=== PATIENT | female | born 2005 | race Caucasian/White ===

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

== ENCOUNTER → 2024-01-02 | Outpatient (CLI) | payer BC ==
--- NOTE | 2024-01-02 15:52 | CT ---
EXAMINATION TYPE: CT brain wo con CT DLP: 1165 mGycm, Automated exposure control for dose reduction was used. DATE OF EXAM: 01/02/2024 3:34 PM COMPARISON: None. CLINICAL INDICATION:Female, 19 years old with history of R55 Syncope, syncope TECHNIQUE: Brain: Multiple axial CT images of the brain were obtained without IV contrast. . Coronal and sagitta l reformats reviewed. FINDINGS: Brain: Extra-axial spaces: No abnormal extra-axial fluid collections. Incidental fat-containing pericallosal lipoma along the falx. Ventricular system: Within normal limits Cerebral parenchyma: No acute intraparenchymal hemorrhage or mass effect. The spencer-white junction is well differentiated. Cerebellum: Unremarkable. Mass effect: No evidence of midline shift. Intracranial vasculature: unremarkable Soft tissues: Few subcentimeter occipital soft tissue lymph nodes. Calvarium/osseous structures: No depressed skull fracture. Paranasal sinuses and mastoid air cells: Clear Visualized orbits: Orbital contents are intact. IMPRESSION: No acute intracranial process. [facility], , 01/02/2024 3:50 PM
--- NOTE | 2024-01-02 16:56 | CA ---
Transthoracic Echo Report Name: Farrah Moses Age: 19 Gender: F : 2005 Exam Date: 01/02/2024 15:38 Exam Location: [facility] Ht (in): 67 Wt (lb): 270 Ordering Physician: Oren Barrera MD Attending/Referring Phys: Ingrid Graham PAC Fusion Analyst Venessa Lassiter RDCS Procedure CPT: Indications: R55 Syncope Cardiac Hx: Technical Quality: Good Contrast 1: Total Dose (mL): Contrast 2: Total Dose (mL): MEASUREMENTS (Male / Female) Normal Values 2D ECHO LV Diastolic Diameter PLAX 4.6 cm 4.2 - 5.9 / 3.9 - 5.3 cm LV Systolic Diameter PLAX 2.7 cm IVS Diastolic Thickness 1.1 cm 0.6 - 1.0 / 0.6 - 0.9 cm LVPW Diastolic Thickness 1.1 cm 0.6 - 1.0 / 0.6 - 0.9 cm LV Relative Wall Thickness 0.5 RV Internal Dim ED PLAX 3.1 cm LA Systolic Diameter LX 3.5 cm 3.0 - 4.0 / 2.7 - 3.8 cm M-MODE Aortic Root Diameter MM 2.5 cm AV Cusp Separation MM 2.0 cm DOPPLER AV Peak Velocity 142.2 cm/s AV Peak Gradient 8.1 mmHg Mitral E Point Velocity 121.2 cm/s Mitral A Point Velocity 60.7 cm/s Mitral E to A Ratio 2.0 MV Deceleration Time 249.3 ms TR Peak Velocity 219.0 cm/s TR Peak Gradient 19.2 mmHg Right Ventricular Systolic Press 29.2 mmHg FINDINGS Left Ventricle Left ventricular ejection fraction is estimated at 55-60 %. Left ventricular cavity size normal. Mildly increased septal wall thickness. Mildly increased posterior wall thickness. Normal left ventricular wall motion. Right Ventricle Normal right ventricular size and function. Right ventricular systolic pressure within normal limits. Right Atrium Normal right atrial size. No right atrial thrombus or mass seen. Left Atrium Normal left atrial size. No left atrial thrombus or mass present. Mitral Valve Structurally normal mitral valve. No mitral stenosis, regurgitation or prolapse. Aortic Valve Trileaflet aortic valve. No aortic valve stenosis or regurgitation. Tricuspid Valve Structurally normal tricuspid valve. Trace to mild tricuspid regurgitation. Pulmonic Valve Structurally normal pulmonic valve. No pulmonic regurgitation. Pericardium No pericardial or pleural effusion. Aorta Normal size aortic root and proximal ascending aorta. CONCLUSIONS Normal LV function Previewed by: Dr. Isaac Jarvis MD (Electronically Signed) Final Date: 02 January 2024 16:55
== END | disposition home or self-care (01) ==
LOC: RADCTMAIN 15:16
PROVIDERS: ATTEND Family Medicine
DX: R55 Syncope and collapse (principal)
CPT/HCPCS: 70450; 93306

== ENCOUNTER → 2024-02-09 | Outpatient (CLI) | payer BC ==
--- NOTE | 2024-02-12 08:36 | EEG ---
ELECTROENCEPHALOGRAM REPORT EEG TYPE: This is a prolonged routine EEG with video using the 10/20 electrode placement system. The start of recording is 9:25 am and the end of recording is 10:26 a.m. on 02/09/2024. CLINICAL HISTORY: This is a 19-year-old woman with reported syncopal episode. The video EEG is obtained to evaluate for seizure epileptiform activity. RELEVANT MEDICATION: 1. Methylphenidate. 2. Buspirone. 3. Escitalopram that is reported on the dental laboratory technician apprentice report. DESCRIPTION: Wakefulness and brief drowsiness are obtained. During awake state, the posterior- dominant rhythm consists of [id number] voltage of 11.5-12 Hz activity that is well modulated, well sustained. There is no physiological stage 2 sleep architecture. There is no focal slowing. INTERICTAL AND ICTAL: There is a spike/some sharply controlled activity over the left frontotemporal region. No seizure is noted during the study. ACTIVATION PROCEDURE: Photic stimulation did not evoke a posterior driving response. There is no abnormality during the photic stimulation. Hyperventilation is not performed. CLINICAL INTERPRETATION: This is an abnormal 1 hour EEG. The background is normal. There is spike/sharply controlled activity over left frontal/temporal, which seems suspicious for epileptiform discharges. No seizures noted during the study. No focal slowing is noted. RECOMMENDATIONS: I highly recommend the patient to be evaluated by epileptologist and consider epilepsy monitoring unit as an outpatient. Also, clinical correlation is recommended. SAM / MIA: [id number] /
== END ==
LOC: NEUROMAIN 09:05
PROVIDERS: ATTEND Family Medicine
DX: R55 Syncope and collapse (principal)
CPT/HCPCS: 95812